=== PATIENT | female | born 1980 | race Caucasian/White ===

== ENCOUNTER 2016-10-21 17:37 | Outpatient (CLI) | payer MEDICAID ==
[~2016-10-21] VITALS: Ht 170.2 cm; Wt 90.0 kg
[~2016-10-21 17:37] MED LIST: PNV1TABL11 PO
[2016-10-21 18:54] LABS: DAU SCREEN DISCLAIMER
[2016-10-21 19:19] VITALS: BP 109/59
[2016-10-21] MEDS ORDERED: FERR324T8 PO (19:19)
== END 2016-10-21 20:10 | disposition home or self-care (01) ==
LOC: LDOP 17:37
PROVIDERS: ATTEND Student in an Organized Health Care Education/Training Program
DX: O46.93 Antepartum hemorrhage, unspecified, third trimester (principal); O30.003 Twin pregnancy, unspecified number of placenta and unspecified number of amniotic sacs, third trimester; O62.9 Abnormality of forces of labor, unspecified; Z3A.29 29 weeks gestation of pregnancy
CPT/HCPCS: 80307; 81001; 87086; G0479

== ENCOUNTER 2017-07-14 16:06 | Emergency (ER) | payer MEDICAID ==
[~2017-07-14] VITALS: Ht 170.2 cm; Wt 71.0 kg
[~2017-07-14 16:06] MED LIST changes: +FERR324T8 PO
[2017-07-14 16:11] VITALS: BP 112/61
[2017-07-14] MEDS ORDERED: HYDROcodone/APAP 5/325 TABLET PO ONE (17:00)
[2017-07-14] MEDS ORDERED: HYDROcodone/APAP 5/325 TABLET ONE (17:14)
== END 2017-07-14 17:21 | disposition home or self-care (01) ==
LOC: ED 17:05
DX: K04.7 Periapical abscess without sinus (principal); K02.9 Dental caries, unspecified
CPT/HCPCS: 41800; 99283

== ENCOUNTER 2018-05-02 16:28 | Emergency (ER) | payer MEDICAID ==
[~2018-05-02] VITALS: Ht 170.2 cm; Wt 67.2 kg
[2018-05-02 16:32] VITALS: BP 117/68
[2018-05-02] MEDS ORDERED: LIDOCAINE 1%, 10ML INFIL ONE (17:00)
[2018-05-02] MEDS ORDERED: LIDOCAINE-MPF 1%, 5ML ONE (17:29)
[2018-05-02] MEDS ORDERED: HYDROcodone/APAP 5/325 TABLET ONE (17:29)
[2018-05-02] MEDS ORDERED: HYDROcodone/APAP 5/325 TABLET PO ONE (17:30)
--- NOTE | 2018-05-02 17:51 | NUR ---
Patient/Caregiver given discharge instructions and they have confirmed that they understand the instructions. Patient ambulatory with steady gait.
== END 2018-05-02 17:52 | disposition home or self-care (01) ==
LOC: ED 17:46
DX: K04.7 Periapical abscess without sinus (principal); K02.9 Dental caries, unspecified
CPT/HCPCS: 41800; 99283

== ENCOUNTER 2019-10-02 11:11 | Emergency (ER) | payer MEDICAID ==
[2019-10-02] VITALS (7 sets, daily range): BP systolic 88–102; BP diastolic 45–55
[~2019-10-02] VITALS: Ht 170.2 cm; Wt 70.2 kg
--- NOTE | 2019-10-02 11:35 | NUR ---
FIRST CONTACT WITH PT. PT STATED "MY PERIOD HAS LASTED FOR 1 1/2 MONTHS" LOWER ABD PAIN "IT FEELS LIKE A KNOT" A1. PT'S AOX4. RESPS EVEN AND UNLABORED. BP/SPO2 MONITORS IN PLACE. CALL LIGHT WITHIN REACH. PA AT BEDSIDE TO EVALUATE AT THIS TIME.
--- NOTE | 2019-10-02 11:58 | NUR ---
PT'S STRAIGHT CATH'D USING STERILE TECHNIQUE. PT TOLERATED WELL. THIS RN WALKED TO LAB FOR UA.
[2019-10-02 12:04] LABS: ALBUMIN 4.3 g/dL (3.4-5.0); ANION GAP 5 mmol/L (5-15); CALCIUM 8.7 mg/dL (8.5-10.1); CHLORIDE 110 mmol/L (98-107)
[2019-10-02 12:06] LABS: MEAN CORPUSCULAR HEMOGLOBIN 17.5 pg (27.0-34.8); MEAN PLATELET VOLUME 8.7 fL (7.4-10.4); PLATELET COUNT 221 x10^3/uL (130-400); RED BLOOD COUNT 3.14 x10^6/uL (3.82-5.3); RED CELL DISTRIBUTION WIDTH 19.5 % (9.6-15.2)
[2019-10-02 12:08] LABS: MEAN CORPUSCULAR HGB CONC 28.2 g/dL (32.4-35.8)
[2019-10-02 12:10] LABS: ALANINE AMINOTRANSFERASE 18 U/L (12-78); ALKALINE PHOSPHATASE 73 U/L (45-117); BILIRUBIN,TOTAL 0.5 mg/dL (0.2-1.0); CREATININE 0.66 mg/dL (0.55-1.02); TOTAL PROTEIN 8.1 g/dL (6.4-8.2)
[2019-10-02 12:14] LABS: MICROSCOPIC NOT IND
--- NOTE | 2019-10-02 12:20 | NUR ---
Piv placed in patient, consent obtained. Blood tubing primed and ready.
[2019-10-02 12:28] LABS: BASOPHILS % (AUTO) 0 % (0-1); EOSINOPHILS # (AUTO) 0.11 x10^3/uL (0-0.4); EOSINOPHILS % (AUTO) 3 % (1-7); LYMPHOCYTES # (AUTO) 0.95 x10^3/uL (1-3.4); LYMPHOCYTES % (AUTO) 22 % (22-44); MD MORPH REVIEW ONLY; MONOCYTES % (AUTO) 5 % (2-9); NEUTROPHILS # (AUTO) 3.04 x10^3/uL (1.8-6.8); NEUTROPHILS % (AUTO) 71 % (42-75)
--- NOTE | 2019-10-02 12:29 | NUR ---
PT IN [place] AT THIS TIME.
[2019-10-02 12:30] LABS: ANISOCYTOSIS 1+; HYPOCHROMIA 2+; MICROCYTOSIS 2+; OVALOCYTES 1+; TEAR DROPS 1+
[2019-10-02 12:31] LABS: <PLATELET ESTIMATE> ADEQUATE; <PLT MORPHOLOGY> NORMAL PLT MORPH
--- NOTE | 2019-10-02 13:02 | NUR ---
[facility] [place] [facility] informed blood to be ready @[id number]
--- NOTE | 2019-10-02 13:35 | NUR ---
PT'S BP IS LOW(88/52) AT THIS TIME. EDMD NOTIFIED BEFORE BLOOD TRANSFUSION.
--- NOTE | 2019-10-02 13:47 | NUR ---
BLOOD TRASFUSION STARTED AT THIS TIME.
[2019-10-02] MEDS ORDERED: MEDROXYPROGESTERONE ACETATE 150 MG/ML IM ONE (14:00)
--- NOTE | 2019-10-02 14:10 | NUR ---
PT MEDICATED PER EMAR. PT TOLERATED WELL.
--- NOTE | 2019-10-02 14:39 | NUR ---
PT STILL TRANSFUSING PRBC'S. PT'S AOX4. RESPS EVEN AND UNLABORED. PT DENIES PAIN, SOB, ANY OTHER SX. PIV SITE CDI WITH NO REDNESS/EDEMA.
[2019-10-02] MEDS ORDERED: SODIUM CHLORIDE 0.9% 1,000ML IVBOLUS ONE (15:00)
--- NOTE | 2019-10-02 15:10 | NUR ---
WARM BLANKET PROVIDED PER REQUEST AT THIS TIME.
--- NOTE | 2019-10-02 15:45 | NUR ---
BLOOD TRAMSFUSION FINISHED AT THIS TIME. NS INFUSING AT THIS TIME PER EMAR. PT TOLERATED WELL.
--- NOTE | 2019-10-02 16:41 | NUR ---
PT RESTING IN [facility]. PT'S AOX4. RESPS EVEN AND UNLABORED. BP/SPO2 MONITORS IN PLACE. CALL LIGHT WITHIN REACH.
--- NOTE | 2019-10-02 17:06 | NUR ---
PT AMB TO BR WITH STEADY GAIT.
--- NOTE | 2019-10-02 17:11 | NUR ---
Patient given discharge instructions and they have confirmed that they understand the instructions. Patient ambulatory with steady gait.
== END 2019-10-02 17:11 | disposition home or self-care (01) ==
LOC: ED 15:13
DX: D62 Acute posthemorrhagic anemia (principal); N93.8 Other specified abnormal uterine and vaginal bleeding; R10.2 Pelvic and perineal pain
CPT/HCPCS: 36415; 36430; 76830; 80053; 81003; 84703; 85025; 86850; 86900; 86923; 96360; 96361; 96372; 99285; J1050; J7030; P9016

== ENCOUNTER 2019-12-09 17:15 | Emergency (ER) | payer MEDICAID ==
[~2019-12-09] VITALS: Ht 170.2 cm; Wt 71.4 kg
[2019-12-09 18:48] LABS: BASOPHILS % (AUTO) 1 % (0-1); EOSINOPHILS % (AUTO) 2 % (1-7); LYMPHOCYTES % (AUTO) 28 % (22-44); MEAN CORPUSCULAR HEMOGLOBIN 18.7 pg (27.0-34.8); MEAN PLATELET VOLUME 8.4 fL (7.4-10.4); MONOCYTES % (AUTO) 5 % (2-9); NEUTROPHILS % (AUTO) 65 % (42-75); PLATELET COUNT 262 x10^3/uL (130-400); RED BLOOD COUNT 3.92 x10^6/uL (3.82-5.3); RED CELL DISTRIBUTION WIDTH 18.1 % (9.6-15.2)
[2019-12-09 19:01] LABS: ANION GAP 4 mmol/L (5-15); CALCIUM 8.9 mg/dL (8.5-10.1); CHLORIDE 111 mmol/L (98-107); CREATININE 0.57 mg/dL (0.55-1.02)
[2019-12-09 19:25] LABS: ANISOCYTOSIS 1+; HYPOCHROMIA 1+; MD MORPH REVIEW ONLY; MICROCYTOSIS 2+; OVALOCYTES 1+; POLYCHROMASIA 1+; TEAR DROPS 1+
[2019-12-09 19:26] LABS: <PLATELET ESTIMATE> ADEQUATE; <PLT MORPHOLOGY> NORMAL PLT MORPH
[2019-12-09] MEDS ORDERED: SODIUM CHLORIDE 0.9% 1,000ML IVBOLUS ONE (20:00)
[2019-12-09] MEDS ORDERED: SODIUM CHLORIDE FLUSH 10ML SYR IVF ONE (20:00)
[2019-12-09 20:10] LABS: MICROSCOPIC INDICATED
--- NOTE | 2019-12-09 20:24 | NUR ---
Traveled to [place] with [place]
--- NOTE | 2019-12-09 20:42 | NUR ---
Delay in blood administration d/t [place] being [place]
--- NOTE | 2019-12-09 21:00 | NUR ---
Vidal abdi in ED - 12/09/19 at 2120 by LUIS ARMANDO Report given to DIRECTOR OF MEDICAL EDUCATION
--- NOTE | 2019-12-09 21:20 | NUR ---
Slip sent to blood bank to receive 1 unit PRBC
[2019-12-09 21:39] VITALS: BP 99/64
[2019-12-09 21:55] VITALS: BP 100/73
[2019-12-09 22:10] VITALS: BP 108/66
--- NOTE | 2019-12-09 22:10 | NUR ---
TOLERATING TRANSFUSION WELL, ENCOURAGE TO KEEP ARM STRAIGHT.
[2019-12-09 23:15] VITALS: BP 107/66
--- NOTE | 2019-12-09 23:35 | NUR ---
Blood product completed. No s/sx acute reaction. Pt reports, "I feel a lot better." See transfusion documentation for additional details
--- NOTE | 2019-12-09 23:53 | NUR ---
D/c instructions reviewed with pt. Pt verbalizes understanding r/t importance of f/u with [facility] and returning to ED with worsening sx. VSS. IV removed, catheter in tact upon removal. Ambulating independently, steady gait
[2019-12-09 23:54] VITALS: BP 105/69
== END 2019-12-09 23:56 | disposition home or self-care (01) ==
LOC: ED 17:45
DX: N39.0 Urinary tract infection, site not specified (principal); R31.9 Hematuria, unspecified; N93.8 Other specified abnormal uterine and vaginal bleeding; D62 Acute posthemorrhagic anemia; R53.1 Weakness; R53.83 Other fatigue
CPT/HCPCS: 36415; 36430; 76830; 80048; 81001; 84703; 85025; 86850; 86900; 86923; 87086; 96360; 99285; J7030; P9016